=== PATIENT | male | born 1995 | race Caucasian/White ===

== ENCOUNTER 2023-10-23 08:57 | Inpatient (IN) | payer SELFPAY ==
[2023-10-23 09:01] VITALS: BP 174/105; PULSE 90; RESP 17; TEMP 36.7; O2SAT 94; BMI 26.6
--- NOTE | 2023-10-23 09:02 | W.ED.ALCOHOL ---
Documented by User: XAVIER Escalera 10/23/23 10:31 HPI - Alcohol General: Chief Complaint: Alcohol Stated Complaint: detox, alcohol Time Seen by Provider: 10/23/23 09:01 Source: patient Mode of arrival: ambulatory Limitations: no limitations History of Present Illness: Patient is a 27-year-old male who presents requesting alcohol detox. Patient states he has been binge drinking over the past several days. He states he has been drinking heavily daily over the past 8 years. Patient feels like his mental health is not in a good place right now and is requesting help for this as well. He states he does have depression admittedly worsens with his drinking. Patient feels like he is worthless and hopeless. He is not having any suicidal ideations. He has never self harmed before. Denies hallucinations. MD complaint: alcohol withdrawal, alcohol dependence and desires rehab Last drink: Hours (ago) Chronic alcohol use: Yes Previous visits for alcohol intoxication: No Recent trauma: No Associated symptoms: Reports depression and nausea; Deny abdominal pain, suicidal ideation, syncope or vomiting Treatments prior to arrival: none Review of Systems Const: Denies: fever(s), chills, body aches, fatigue or malaise Eyes: Denies: change in vision, blurry vision, photophobia, floaters or seeing flashes Card: Denies: chest pain, palpitations, irregular heart rhythm, edema, lightheadedness, syncope or pre-syncope Resp: Denies: dyspnea GI: Reports: nausea; Denies: abdominal pain, vomiting or diarrhea : Denies: flank pain, difficulty urinating, dysuria, urinary frequency, urinary urgency or urinary hesitancy Musc: Denies: neck pain, back pain, extremity pain, extremity swelling, joint pain or joint swelling Skin/Breast: Denies: rash Neuro: Denies: headache(s), numbness in extremities, weakness in extremities, sensory changes or dizziness Psych: Reports: anxiety, depression and hopelessness; Denies: visual hallucinations, auditory hallucinations, suicidal ideation or homicidal ideation Physical Exam Const: COMMON NORMALS: no acute distress, patient oriented x3, no limitations, alert and well nourished GENERAL APPEARANCE: cooperative, anxious and appears older than stated age ORIENTATION/CONSCIOUSNESS: Yes awake, Yes oriented to person, Yes oriented to place and Yes oriented to time OTHER: hypertensive HENMT: COMMON NORMALS: normocephalic and atraumatic HEAD & SCALP: normal to inspection, normocephalic and atraumatic Eye: COMMON NORMALS: no scleral icterus Resp: COMMON NORMALS: normal respiratory effort and clear to auscultation bilaterally AUSCULTATION: clear to auscultation bilaterally Cardio: COMMON NORMALS: regular rate and regular rhythm RATE: regular rate RHYTHM: regular rhythm GI: COMMON NORMALS: Normal to inspection, nondistended, normoactive bowel sounds present, Soft to palpation, non-tender and no masses PALPATION: Yes Soft to palpation Back/Pelvis: COMMON NORMALS: thoracic and lumbar spine normal to inspection Extremity: GENERAL: Yes normal exam except as noted Neuro: WONG COMA SCALE: document GCS findings Wong coma scale eye opening: Spontaneous Wong coma scale verbal response: Orientated Wong coma scale motor response: Obey commands Wong coma scale total score: 15 COMMON NORMALS: patient oriented x3, CN's II-XII intact bilaterally, moves all extremities, no focal motor deficits, no sensory deficits noted and gait normal SENSORIUM/ORIENTATION: Yes alert, Yes oriented to person, Yes oriented to place and Yes oriented to time Skin: COMMON NORMALS: no rashes or lesions noted GENERAL SKIN EXAM: no rashes or lesions noted Course Consultations: Consultation #1: Dr. Wells-will admit to NPU Vital Signs: Vital signs: Vital Signs Temperature 98.2 F 10/23/23 12:15 Pulse Rate 106 H 10/23/23 12:15 Respiratory Rate 16 10/23/23 12:15 Blood Pressure 136/84 10/23/23 12:15 Pulse Oximetry 95 10/23/23 12:15 Oxygen Delivery Me thod Room Air 10/23/23 12:18 MDM - Alcohol Medical Decision Making Patient is a 27-year-old male who be admitted to NPU to Dr. Wells for further evaluation and treatment of his worsening depression and alcohol abuse. Medical Records I reviewed the patient's medical records. Lab Data I reviewed the patient's lab results. 10/23/23 09:23 10/23/23 09:23 Laboratory Results WBC 9.07 10^3/uL (3.29-11.43) 10/23/23 09:23 RBC 5.54 10^6/uL (3.85-5.65) 10/23/23 09:23 Hgb 16.50 g/dL (11.27-16.99) 10/23/23 09: Hct 48.2 % (37-53) 10/23/23 09: MCV 87.0 fl (82-101) 10/23/23 09: MCH 29.8 pg (27-33) 10/23/23 09: MCHC 34.2 g/dL (30-55) 10/23/23 09: RDW 12.3 % (12.1-15.1) 10/23/23 09: Plt Count 205 10^3/cmm (157-399) 10/23/23 09: MPV 10.1 fL (7.4-10.4) 10/23/23 09: Neut % (Auto) 72.6 % 10/23/23 09: Lymph % (Auto) 17.6 % 10/23/23 09: Sibley % (Auto) 7.6 % 10/23/23 09: Eos % (Auto) 1.2 % 10/23/23 09: Baso % (Auto) 0.3 % 10/23/23 09: Neut # (Auto) 6.58 10^3/uL (1.8-7.7) 10/23/23 09: Lymph # (Auto) 1.6 10^3/uL (0.8-4.8) 10/23/23 09: Sibley # (Auto) 0.7 10^3/uL (0.2-0.9) 10/23/23 09: Eos # (Auto) 0.1 10^3/uL (0.0-0.8) 10/23/23 09: Baso # (Auto) 0.0 10^3/uL (0.0-0.1) 10/23/23: Nucleated RBC % (auto) 0 % 10/23/23: Nucleated RBCs # 0.0 /100WBC 10/23/23 09: Sodium 136 mmol/L (136-145) 10/23/23 09:23 Potassium 3.9 mmol/L (3.5-5.1) 10/23/23 09: Chloride 92 mmol/L (98-107) L 10/23/23 09:23 Carbon Dioxide 24 mmol/L (22-29) 10/23/23 09:23 Anion Gap 23.9 (5-19) H 10/23/23 09:23 BUN 10 mg/dL (6-20) 10/23/23 09:23 Creatinine 1.0 mg/dL (0.7-1.2) 10/23/23 09:23 GFR Calculation 88.3 mL/min (90-130) L 10/23/23 09:23 Glucose 104 mg/dL (65-115) 10/23/23 09:23 Calculated Osmolality 281 mOsm/kg (285-295) L 10/23/23 09:23 Calcium 9.4 mg/dL (8.5-10.5) 10/23/23 09:23 Total Bilirubin 0.9 mg/dL (0.15-1.2) 10/23/23 09:23 AST 114 U/L (0-40) H 10/23/23 09:23 ALT 170 U/L (0-41) H 10/23/23 09:23 Alkaline Phosphatase 73 U/L (40-130) 10/23/23 09:23 Total Protein 8.1 g/dL (6.6-8.7) 10/23/23 09:23 Albumin 4.9 g/dL (3.5-5.2) 10/23/23 09:23 Globulin 3.2 g/dL (1.3-4.6) 10/23/23 09:23 Salicylates < 0.3 mg/dL (3-10) L 10/23/23 09:23 Urine Opiates Screen Negative ng/mL (Negative) 10/23/23 09:07 Acetaminophen < 5.0 ug/mL (10-30) L 10/23/23 09:23 Ur Barbiturates Screen Negative ng/mL (Negative) 10/23/23 09:07 Ur Phencyclidine Scrn Negative ng/mL (Negative) 10/23/23 09:07 Ur Amphetamines Screen Negative ng/mL (Negative) 10/23/23 09:07 U Benzodiazepines Scrn Negative ng/mL (Negative) 10/23/23 09:07 Urine Cocaine Screen Negative ng/mL (Negative) 10/23/23 09:07 U Marijuana (THC) Screen Positive ng/mL (Negative) H 10/23/23 09:07 Ethyl Alcohol 79 mg/dL (0-10) H 10/23/23 09:23 No radiology studies performed this visit Discharge Plan Discharge Patient Disposition: Admitted As Inpatient Admit Provider: Matt Wells Clinical Impression: Chronic alcohol abuse, Depression Condition: Stable Coding Level of Care Code ED [employer]ist for [employer] Fwd Documented by User: Zoltan Red DO 10/23/23 15:15 HPI - Alcohol General: Chief Complaint: Alcohol Stated Complaint: detox, alcohol Time Seen by Provider: 10/23/23 09:01 Physical Exam Neuro: WONG COMA SCALE: document GCS findings [place] coma scale total score: 15 Course Vital Signs: Vital signs: Vital Signs Temperature 98.2 F 10/23/23 12:15 Pulse Rate 106 H 10/23/23 12:15 Respiratory Rate 16 10/23/23 12:15 Blood Pressure 136/84 10/23/23 12:15 Pulse Oximetry 95 10/23/23 12:15 Oxygen Delivery Me thod Room Air 10/23/23 12:18 MDM - Alcohol Medical Decision Making Patient is a 27-year-old male who be admitted to NPU to Dr. Wells for further evaluation and treatment of his worsening depression and alcohol abuse. Chart reviewed and patient discussed with midlevel. Agree with assessment and plan. Lab Data 10/23/23 09:23 10/23/23 09:23 Laboratory Results WBC 9.07 10^3/uL (3.29-11.43) 10/23/23 09:23 RBC 5.54 10^6/uL (3.85-5.65) 10/23/23 09:23 Hgb 16.50 g/dL (11.27-16.99) 10/23/23 09:23 Hct 48.2 % (37-53) 10/23/23 09:23 MCV 87.0 fl (82-101) 10/23/23 09:23 MCH 29.8 pg (27-33) 10/23/23 09:23 MCHC 34.2 g/dL (30-55) 10/23/23 09: RDW 12.3 % (12.1-15.1) 10/23/23 09: Plt Count 205 10^3/cmm (157-399) 10/23/23 09:23 MPV 10.1 fL (7.4-10.4) 10/23/23 09: Neut % (Auto) 72.6 % 10/23/23 09: Lymph % (Auto) 17.6 % 10/23/23 09:23 Sibley % (Auto) 7.6 % 10/23/23 09:23 Eos % (Auto) 1.2 % 10/23/23 09: Baso % (Auto) 0.3 % 10/23/23 09: Neut # (Auto) 6.58 10^3/uL (1.8-7.7) 10/23/23 09: Lymph # (Auto) 1.6 10^3/uL (0.8-4.8) 10/23/23 09: Sibley # (Auto) 0.7 10^3/uL (0.2-0.9) 10/23/23 09:23 Eos # (Auto) 0.1 10^3/uL (0.0-0.8) 10/23/23 09: Baso # (Auto) 0.0 10^3/uL (0.0-0.1) 10/23/23 09: Nucleated RBC % (auto) 0 % 10/23/23 09: Nucleated RBCs # 0.0 /100WBC 10/23/23 09: Sodium 136 mmol/L (136-145) 10/23/23 09:23 Potassium 3.9 mmol/L (3.5-5.1) 10/23/23 09:23 Chloride 92 mmol/L (98-107) L 10/23/23 09:23 Carbon Dioxide 24 mmol/L (22-29) 10/23/23 09:23 Anion Gap 23.9 (5-19) H 10/23/23 09:23 BUN 10 mg/dL (6-20) 10/23/23 09:23 Creatinine 1.0 mg/dL (0.7-1.2) 10/23/23 09:23 GFR Calculation 88.3 mL/min (90-130) L 10/23/23 09:23 Glucose 104 mg/dL (65-115) 10/23/23 09:23 Calculated Osmolality 281 mOsm/kg (285-295) L 10/23/23 09:23 Calcium 9.4 mg/dL (8.5-10.5) 10/23/23 09:23 Total Bilirubin 0.9 mg/dL (0.15-1.2) 10/23/23 09:23 AST 114 U/L (0-40) H 10/23/23 09:23 ALT 170 U/L (0-41) H 10/23/23 09:23 Alkaline Phosphatase 73 U/L (40-130) 10/23/23 09:23 Total Protein 8.1 g/dL (6.6-8.7) 10/23/23 09:23 Albumin 4.9 g/dL (3.5-5.2) 10/23/23 09:23 Globulin 3.2 g/dL (1.3-4.6) 10/23/23 09:23 Salicylates < 0.3 mg/dL (3-10) L 10/23/23 09:23 Urine Opiates Screen Negative ng/mL (Negative) 10/23/23 09:07 Acetaminophen < 5.0 ug/mL (10-30) L 10/23/23 09:23 Ur Barbiturates Screen Negative ng/mL (Negative) 10/23/23 09:07 Ur Phencyclidine Scrn Negative ng/mL (Negative) 10/23/23 09:07 Ur Amphetamines Screen Negative ng/mL (Negative) 10/23/23 09:07 U Benzodiazepines Scrn Negative ng/mL (Negative) 10/23/23 09:07 Urine Cocaine Screen Negative ng/mL (Negative) 10/23/23 09:07 U Marijuana (THC) Screen Positive ng/mL (Negative) H 10/23/23 09:07 Ethyl Alcohol 79 mg/dL (0-10) H 10/23/23 09:23 Discharge Plan Discharge Patient Disposition: Admitted As Inpatient Admit Provider: Matt Wells Clinical Impression: Chronic alcohol abuse, Depression Condition: Stable Coding Level of Care Code 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
[2023-10-23 09:12] VITALS: BP 146/87; PULSE 70; RESP 16; O2SAT 96
--- NOTE | 2023-10-23 09:18 | PC.PHAR ---
PT STATES HE TAKES NO RX OR OTC MEDICATIONS
[2023-10-23 09:28] LABS: Basophils % 0.3 %; Eosinophils # 0.1 10^3/uL (0.0-0.8); Eosinophils % 1.2 %; Hematocrit 48.2 % (37-53); Lymphocytes # 1.6 10^3/uL (0.8-4.8); Lymphocytes % 17.6 %; Mean Corpuscular HGB Conc 34.2 g/dL (30-55); Mean Corpuscular Hemoglobin 29.8 pg (27-33); Mean Platelet Volume 10.1 fL (7.4-10.4); Monocytes # 0.7 10^3/uL (0.2-0.9); Monocytes % 7.6 %; Neutrophils # 6.58 10^3/uL (1.8-7.7); Neutrophils % 72.6 %; Nucleated Red Blood Cells % 0 %; Platelet Count 205 10^3/cmm (157-399); Red Blood Count 5.54 10^6/uL (3.85-5.65); Red Cell Distribution Width 12.3 % (12.1-15.1); White Blood Count 9.07 10^3/uL (3.29-11.43)
[2023-10-23] MEDS: multivitamin therapeutic Tablet 1 TAB PO (09:42)
[2023-10-23] MEDS: LORazepam 2 mg/mL INJ 10 mL MDV 1 MG IV (09:46)
[2023-10-23] MEDS: sodium chloride 0.9% 1,000 ML 999 ML IV (09:47)
[2023-10-23 09:50] LABS: Alanine Aminotransferase 170 U/L (0-41); Albumin Level 4.9 g/dL (3.5-5.2); Alcohol Level 79 mg/dL (0-10); Alkaline Phosphatase 73 U/L (40-130); Anion Gap 23.9 (5-19); Aspartate Amino Transferase 114 U/L (0-40); Blood Urea Nitrogen 10 mg/dL (6-20); Calcium 9.4 mg/dL (8.5-10.5); Carbon Dioxide 24 mmol/L (22-29); Chloride 92 mmol/L (98-107); Creatinine Clr Calc Pharmacy 112.2204; Globulin 3.2 g/dL (1.3-4.6); Glomerular Filtration Rate 88.3 mL/min (90-130); Glucose 104 mg/dL (65-115); Osmolality Calculated 281 mOsm/kg (285-295); Potassium 3.9 mmol/L (3.5-5.1); Sodium 136 mmol/L (136-145); Total Bilirubin 0.9 mg/dL (0.15-1.2); Total Protein 8.1 g/dL (6.6-8.7)
[2023-10-23 09:51] LABS: Acetaminophen < 5.0 ug/mL (10-30); Salicylate < 0.3 mg/dL (3-10)
[2023-10-23 10:17] LABS: Amphetamines Screen Urine Negative (Negative); Barbiturates Screen Urine Negative (Negative); Benzodiazepines Screen Urine Negative (Negative); Cocaine Screen Urine Negative (Negative); Opiate Screen Urine Negative (Negative); PCP Screen Urine Negative (Negative); THC Screen Urine Positive (Negative)
[2023-10-23 11:12] VITALS: BP 138/81; PULSE 81; O2SAT 96
[2023-10-23 12:15] VITALS: BP 136/84; PULSE 106; RESP 16; TEMP 36.8; O2SAT 95
[2023-10-23] MEDS: LORazepam 2 mg Tablet PO ×2 (12:41→20:15)
--- NOTE | 2023-10-23 12:45 | PC.NURSE ---
PRN MED PT GIVEN 2MG ATIVAN FOR DETOX, SCORING 11 ON CIWA SCALE, WILL CONTINUE TO MONITOR.
[2023-10-23 14:00] VITALS: BP 129/67; PULSE 87; RESP 16; TEMP 36.6; O2SAT 98
[2023-10-23 20:30] VITALS: BP 154/80; PULSE 89; RESP 17; TEMP 37.2; O2SAT 98
--- NOTE | 2023-10-23 22:21 | PC.NURSE ---
Pt scored 14 on the CIWA scale and received 2mg PO Ativan.
[2023-10-24 06:00] VITALS: BP 131/80; PULSE 88; RESP 17; TEMP 36.9; O2SAT 95
[2023-10-24] MEDS: ondansetron 4 MG Tablet PO (08:34)
[2023-10-24] MEDS: LORazepam 2 mg Tablet PO ×4 (08:34→20:10)
[2023-10-24] MEDS: multivitamin therapeutic Tablet 1 TAB PO (08:34)
[2023-10-24] MEDS: folic acid 1 mg Tablet PO (08:34)
[2023-10-24] MEDS: thiamine 100 mg Tablet PO (08:34)
[2023-10-24] MEDS: acetaminophen 325 mg Tablet 650 MG PO ×3 (08:35→20:10)
--- NOTE | 2023-10-24 09:37 | PC.NURSE ---
PT WAS GIVEN PRN TYLENOL 650MG FOR A HEADACHE, PRN ONDANSETRON 5MG FOR NAUSEA, AND PRN ATIVAN 2 MG PER [facility] PROTOCOL. PT WAS REASSESSED AND PT WAS RESTING PEACEFULLY IN BED WITH EYES CLOSED RESPIRATIONS ARE EVEN AND NON-LABORED. MEDICATIONS APPEARS TO HAVE RELIEVED SYMPTOMS.
--- NOTE | 2023-10-24 11:28 | W.PM.NPUH&PS ---
Providers/Chief Complaint Admitting Physician: Matt Wells MD Chief Complaint: detox, alcohol HPI NPU History of Present Illness Holger Jones is a 27 year old male who presented to the emergency department with the following report: Chief Complaint: Alcohol Stated Complaint: detox, alcohol Time Seen by Provider: 10/23/23 09:01 Source: patient Mode of arrival: ambulatory Limitations: no limitations History of Present Illness: Patient is a 27-year-old male who presents requesting alcohol detox. Patient states he has been binge drinking over the past several days. He states he has been drinking heavily daily over the past 8 years. Patient feels like his mental health is not in a good place right now and is requesting help for this as well. He states he does have depression admittedly worsens with his drinking. Patient feels like he is worthless and hopeless. He is not having any suicidal ideations. He has never self harmed before. Denies hallucinations. MD complaint: alcohol withdrawal, alcohol dependence and desires rehab Last drink: Hours (ago) Chronic alcohol use: Yes Previous visits for alcohol intoxication: No Recent trauma: No Associated symptoms: Reports depression and nausea; Deny abdominal pain, suicidal ideation, syncope or vomiting Treatments prior to arrival: none. He was transferred to the neuropsychiatric unit for definitive treatment of those issues. He presents today new to the system and new to this narrative writer with the following report: CHIEF COMPLAINT Patient sought help for alcohol detoxification, depression, and anxiety. HISTORY OF THE PRESENT COMPLAINT The patient, born on 1995, presented to the hospital for alcohol detoxification and sleep issues. He reported a history of chronic depression and anxiety, which he has been experiencing for his entire life. His alcohol use has recently escalated and he has been trying to control it. He stopped drinking a couple of days prior to the consultation. The patient has a history of psychiatric hospitalization, with one instance in [place]. He also had outpatient services in [place] for depression, but he discontinued the therapy as he found it unhelpful. In the past, he was prescribed sertraline (Zoloft) and Lexapro for his mental health issues. The patient started consuming alcohol at the age of 12 and it has been a daily problematic behavior since he was 19. BAL was 79. Prior to his recent cessation, he was consuming a minimum of 20 beers a day, sometimes with whiskey. He also reported using cannabis to calm his nerves and aid sleep. He denied using cocaine, methamphetamine, or any other drugs. He has never been to rehab but attended drug counseling classes when he was younger. He is currently dealing with a DUI charge from January 2023. The patient reported a history of depression, characterized by low mood, feelings of helplessness, hopelessness, and worthlessness. He tends to oversleep when depressed and his appetite varies. He admitted to having suicidal thoughts in the past but never acted on them. He denied any self-injurious behavior apart from alcohol abuse. His anxiety manifests as constant fear and worry, with occasional paranoia. He denied experiencing hallucinations, nightmares, or flashbacks about traumatic events. The patient has been transient for almost 9 or 10 years, moving between homes. He is currently homeless and trying to find stable housing. He has a job in construction. He has been to group home a few times, mainly for alcohol-related offenses. The longest time he spent in group home was for 180 days when he was 16 due to a cannabis-related charge. The patient described his current mood as anxious and uncertain about the future. He denied having any current suicidal thoughts or feelings of paranoia. He also denied experiencing hallucinations. He expressed interest in trying another antidepressant or anti-anxiety medication. He is also interested in finding a stable place to live and getting back on his feet. We discussed the risks, benefits and alternatives of a trial of Prozac and BuSpar and he understood and agreed to proceed as is documented in this note. MENTAL HEALTH HISTORY Patient has a history of depression and anxiety. He has been on sertraline (Zoloft) in the past. He has also been in a psychiatric hospital in [place] once. He has had outpatient services in [place] for depression, but stopped going as it was not beneficial. SOCIAL HISTORY Patient has a history of alcohol abuse, starting at the age of 12, with daily problematic behavior. He stopped drinking a couple of days ago. He used to consume 20 beers at a minimum daily, sometimes with a little whiskey. He also used cannabis to calm down. He has no history of tobacco use. He has a DUI charge that he is currently working through. He has a history of public intoxication. He has been transient for almost 9 or 10 years. He has been to group home a few times, mostly for drinking-related issues. He has a job in construction. Busap NPU Home Medications Medication Instructions Recorded Confirmed Last Taken Type No Known Home Medications 10/23/23 10/23/23 Unknown History Allergies Allergy/AdvReac Type Severity Reaction Status Date / Time No Known Allergies Allergy Verified 10/23/23 09:17 Mental Status Exam MSE Comments: This is a well-nourished well-developed white male in hospital scrubs with poor grooming and limited eye contact. No abnormal movements except for psychomotor retardation. Cooperative with exam in mild distress. Speech was slightly decreased rate and volume. Mood described as depressed and anxious, affect subdued. Thought process organized. Thought content: He reports constant depression and anxiety. He has had suicidal thoughts in the past but never acted on them. He has no history of self-injurious behavior. He reports feeling constantly afraid and worried. He sometimes feels paranoid. Patient denied suicidal or homicidal ideation, there were no delusions reported or noted, he denied any auditory or visual hallucinations. Attention and concentration appear intact and memory appears reliable but none were formally tested. He is alert and oriented x 3. Insight and judgment are limited and impulse control is impaired. Vitals/I&O/Wt Last Vital Signs Temp 98.4 F 10/24/23 06:00 Pulse 88 10/24/23 06:00 Resp 17 10/24/23 06:00 BP 131/80 10/24/23 06:00 Pulse Ox 95 10/24/23 06:00 O2 Del Method Room Air 10/24/23 06:00 Weight last 48 hrs Weight 79.379 kg Data NPU 10/23/23 09:23 10/23/23 09:23 A&P Assessment and plan (1) Alcohol use disorder, severe, dependence: (2) Anxiety disorder, unspecified: (3) Persistent depressive disorder, moderate: (4) Alcohol withdrawal: Plan This is a 27-year-old white male with a previous history of mental health and addiction issues who presents with chronic depression and anxiety, along with a history of alcohol abuse. He is currently seeking help for these issues. He has a history of unsuccessful outpatient treatment and has been on medication in the past. He has a history of legal issues related to his alcohol use. He is currently transient and working in construction. 1. Start Prozac 20 mg p.o. daily and BuSpar 10 mg p.o. twice daily. 2. Continue every 15 minute checks for safety. 3. Encourage individual, group and milieu therapy. 4. Encourage sober living treatment after discharge at the highest level of care to which she is willing to commit. 5. Will work with social work team on Thursday for possible assistance with residential challenges. 6. Continue CIWA protocol. Involuntary Hold Information 96 Hour Hold: 96 Hour Involuntary Admission: No Attestations NPU Medical Necessity Statement*: Inpatient hospitalization is medically necessary and the clinically appropriate intervention at this time. We will monitor medications and make changes as indicated. He will be in the hospital over 2 midnights. Likely length of stay 4-6 days. Coding Level of Care Code Acute Code for [facility] Fwd Diagnoses Alcohol use disorder, severe, dependence F10.20 Anxiety disorder, unspecified F41.9 Persistent depressive disorder, moderate F34.1 Alcohol withdrawal F10.939
[2023-10-24] MEDS: BuSPIRONE 10 mg Tablet PO ×2 (13:29→20:10)
[2023-10-24] MEDS: fluoxetine 20 mg Capsule PO (13:29)
[2023-10-24 14:00] VITALS: BP 122/75; PULSE 74; RESP 16; TEMP 36.6; O2SAT 97
--- NOTE | 2023-10-24 14:05 | PC.NURSE ---
PT RECEIVED PRN TYLENOL 650MG AND PRN ATIVAN PER [facility] PROTOCOL FOR A SCORE OF 10. AFTER REASSESSMENT PT IS LAYING IN BED, PT ENDORSES A RELIEF IN ANXIETY AND NO LONGER HAVING A HEADACHE. MEDICATIONS HAVE BEEN DEEMED EFFECTIVE.
[2023-10-24] MEDS: ibuprofen 600 mg Tablet PO (17:01)
--- NOTE | 2023-10-24 17:50 | PC.NURSE ---
PT RECEIVED PT ATIVAN PER [facility] PROTOCOL FOR A SCORE OF 10 AND IBUPROFEN 600MG PRN FOR A HEADACHE. AFTER REASSESSMENT PT ENDORSES RELIEF OF ANXIETY AND WITHDRAWAL SYMPTOMS AND SOME PAIN RELIEF FOR HIS HEADACHE.
[2023-10-24 20:31] VITALS: BP 149/82; PULSE 89; RESP 17; TEMP 37.4; O2SAT 97
[2023-10-25 06:00] VITALS: BP 123/80; PULSE 102; RESP 16; TEMP 36.9; O2SAT 98
--- NOTE | 2023-10-25 07:31 | P.NPUPN_ITS ---
Subjective NPU 2 Subjective: Today patient presented reporting that things are fine. He reports his medication seems to be helping. We discussed Dr. Monsivais would be here tomorrow. He discussed wanting to discharge sooner rather than later. He denied side effects to medication. Mental Status Exam 2 MSE Comments: This is a well-nourished well-developed white male in hospital scrubs with poor grooming and limited eye contact. No abnormal movements except for psychomotor retardation. Cooperative with exam in mild distress. Speech was slightly decreased rate and volume. Mood described as depressed and anxious, affect subdued. Thought process organized. Thought content: He reports constant depression and anxiety. He has had suicidal thoughts in the past but never acted on them. He has no history of self-injurious behavior. He reports feeling constantly afraid and worried. He sometimes feels paranoid. Patient denied suicidal or homicidal ideation, there were no delusions reported or noted, he denied any auditory or visual hallucinations. Attention and concentration appear intact and memory appears reliable but none were formally tested. He is alert and oriented x 3. Insight and judgment are limited and impulse control is impaired. Vitals/I&O/Wt Last Vital Signs Temp 98.4 F 10/25/23 06:00 Pulse 102 H 10/25/23 06:00 Resp 16 10/25/23 06:00 BP 123/80 10/25/23 06:00 Pulse Ox 98 10/25/23 06:00 O2 Del Method Room Air 10/24/23 20:31 Weight last 48 hrs Weight 84.55 kg Weight 79.379 kg Data NPU 10/23/23 09:23 10/23/23 09:23 A&P Assessment and plan (1) Anxiety disorder, unspecified: (2) Persistent depressive disorder, moderate: (3) Alcohol withdrawal: Plan This is a 27-year-old white male with a previous history of mental health and addiction issues who presents with chronic depression and anxiety, along with a history of alcohol abuse. He is currently seeking help for these issues. He has a history of unsuccessful outpatient treatment and has been on medication in the past. He has a history of legal issues related to his alcohol use. He is currently transient and working in construction. 1. Started Prozac 20 mg p.o. daily and BuSpar 10 mg p.o. twice daily. 2. Continue every 15 minute checks for safety. 3. Encourage individual, group and milieu therapy. 4. Encourage sober living treatment after discharge at the highest level of care to which she is willing to commit. 5. Will work with social work team on Thursday for possible assistance with residential challenges. 6. Continue [facility] protocol. Involuntary Hold Information 2 96 Hour Hold: 96 Hour Involuntary Admission: No Attestations NPU 2 Medical Necessity Statement*: Inpatient hospitalization is medically necessary and the clinically appropriate intervention at this time. We will monitor medications and make changes as indicated. Likely length of stay 1-3 days. Coding Level of Care Code Acute Code for [facility] Fwd Diagnoses Anxiety disorder, unspecified F41.9 Persistent depressive disorder, moderate F34.1 Alcohol withdrawal F10.939
[2023-10-25] MEDS: multivitamin therapeutic Tablet 1 TAB PO (08:21)
[2023-10-25] MEDS: fluoxetine 20 mg Capsule PO (08:21)
[2023-10-25] MEDS: BuSPIRONE 10 mg Tablet PO ×2 (08:21→20:12)
[2023-10-25] MEDS: thiamine 100 mg Tablet PO (08:21)
[2023-10-25] MEDS: folic acid 1 mg Tablet PO (08:21)
[2023-10-25] MEDS: LORazepam 2 mg Tablet PO ×2 (08:21→18:01)
--- NOTE | 2023-10-25 11:08 | PC.NURSE ---
PT RECEIVED PRN 2MG ATIVAN PER [facility] PROTOCOL. PT SCORED A 10. AFTER REASSESSMENT PT ENDORSED IMPROVEMENT IN SYMPTOMS AND THE ABILITY TO REST AND A SIGNIFICANT DECREASE IN ANXIETY.
--- NOTE | 2023-10-25 11:48 | PC.NURSE ---
PT CAME TO NURSES STATION AND ASKED ABOUT DISCHARGE. THIS NURSE EXPLAINED THAT THE PHYSICIAN HAS TO PLACE A DISCHARGE ORDER FOR A PERSON TO BE DISCHARGE. THIS NURSE EDUCATED PT THAT DISCHARGE WAS DEPENDENT ON HOW THE PT HAS BEEN PROGRESSING WITH TREATMENT. PT STATED WELL I NEED TO GET BACK TO WORK I AM NOT MAKING ANY MONEY JUST LAYING IN BED HERE. I HAVE STARTED MEDICATIONS AND NOW I WOULD LIKE TO LEAVE. I CAME HERE VOLUNTARILY. THIS NURSE EXPLAINED THAT THE ONLY OPTION CURRENTLY FOR HIM TO LEAVE WOULD BE FOR HIM TO LEAVE AMA. THIS NURSE EXPLAINED THAT THIS WOULD MEAN THAT HE IS LEAVING AGAINST MEDICAL ADVICE AND THAT WE WOULD NOT BE ABLE TO PROVIDE HIM WITH FOLLOW UP APPOINTMENT OR THE NEW MEDICATIONS THAT HE HAS STARTED HERE. PT VERBALIZED UNDERSTANDING THEN BECAME UPSET WITH BEING HERE WHILE STAFF WAS DOING NOTHING TO HELP HIM . THIS NURSE SPOKE WITH AND EXPLAINED THE TREATMENT THAT HE WAS CURRENTLY ON, AND SPOKE WITH HIM ABOUT HOW THE DOCTOR STARTED HIM ON NEW MEDICATIONS YESTERDAY ON 10/24/23. PT STATED YEAH EXACTLY I HAVE MEDICINE AND I DIDN'T HAVE ANY BAD REACTIONS SO WHY AM I STILL HERE, I HAVE BEEN HERE FOR 4 DAY AND I HAVE ONLY BEEN LAYING IN BED. THIS NURSE REORIENTED PT STATING THAT HE GOT ADMITTED ON 10/23/23 WHICH WOULD MEAN THAT HE HAS ONLY BEEN HERE 2 NIGHTS. PT RESPONDED TO THIS NURSE STATING YEAH 4 NIGHTS. THIS NURSE AGAIN REATTEMPTED REORIENTATION WITH PT STATING SIR YOU GOT HERE ON THE IT IS NOW THE THIS WOULD MEAN THAT YOU HAVE ONLY BEEN HERE FOR 2 NIGHTS. PT STATED WELL I CAN'T TELL THE DIFFERENCE BETWEEN DAYS HERE. I FEEL COOPED UP IN THIS [facility]. THIS NURSE ASKED IF THERE WAS ANYTHING STAFF COULD DO TO ALLEVIATE THIS FEELING AND OFFERED A NUMBER OF DISTRACTIONS SUCH READING, PUZZLES, CROSSWORDS, CARDS, AND OTHER GAMES. PT REPLIED WITH ARE YOU GOING TO GIVE ME MY PHONE? THIS NURSE RESPONDED WITH NO, SIR IT IS COMPANY POLICY THAT OUR UNITS PTS MAY NOT HAVE THEIR CELLPHONES HOWEVER, YOU ARE MORE THAN WELCOME TO UTILIZE OUR PHONE TO CONTACT YOUR FAMILY AND FRIENDS. PT BECAME FRUSTRATED AND ASKED WHEN HE WOULD FIND OUT WHEN HE WAS GOING TO LEAVE THIS NURSE TOLD HIM SHE WOULD LOOK INTO THIS INFORMATION BUT THAT I DO NOT CURRENTLY HAVE AN EXACT TIME FRAME AT THIS MOMENT. PT THEN WALKED TO HIS ROOM. PT CURRENT NEEDS ARE MET AT THIS TIME.
[2023-10-25] MEDS: acetaminophen 325 mg Tablet 650 MG PO (12:48)
[2023-10-25] MEDS: hyDROXYzine 25 mg Capsule 50 MG PO ×2 (12:48→20:12)
[2023-10-25 13:18] VITALS: BP 134/86; PULSE 86; RESP 16; TEMP 36.6; O2SAT 96
[2023-10-25 19:37] VITALS: BP 131/75; PULSE 75; RESP 16; TEMP 37.4; O2SAT 97
[2023-10-25] MEDS: trazodone 50 mg Tablet PO (20:13)
[2023-10-26 06:00] VITALS: BP 110/73; PULSE 68; RESP 16; TEMP 36.9; O2SAT 95
[2023-10-26] MEDS: BuSPIRONE 10 mg Tablet PO (08:29)
[2023-10-26] MEDS: fluoxetine 20 mg Capsule PO (08:29)
[2023-10-26] MEDS: multivitamin therapeutic Tablet 1 TAB PO (08:29)
[2023-10-26] MEDS: folic acid 1 mg Tablet PO (08:29)
[2023-10-26] MEDS: thiamine 100 mg Tablet PO (08:29)
--- NOTE | 2023-10-26 13:59 | W.PM.NPUDCS ---
Diagnoses at Discharge Discharge Diagnosis (1) Anxiety disorder, unspecified: Status: Acute (2) Persistent depressive disorder, moderate: Status: Acute (3) Alcohol withdrawal: Status: Acute Reason for Visit Reason for Visit: detox, alcohol Brief History: History of Present Illness Holger Jones is a 27 year old male who presented to the emergency department with the following report: Chief Complaint: Alcohol Stated Complaint: detox, alcohol Time Seen by Provider: 10/23/23 09:01 Source: patient Mode of arrival: ambulatory Limitations: no limitations History of Present Illness: Patient is a 27-year-old male who presents requesting alcohol detox. Patient states he has been binge drinking over the past several days. He states he has been drinking heavily daily over the past 8 years. Patient feels like his mental health is not in a good place right now and is requesting help for this as well. He states he does have depression admittedly worsens with his drinking. Patient feels like he is worthless and hopeless. He is not having any suicidal ideations. He has never self harmed before. Denies hallucinations. MD complaint: alcohol withdrawal, alcohol dependence and desires rehab Last drink: Hours (ago) Chronic alcohol use: Yes Previous visits for alcohol intoxication: No Recent trauma: No Associated symptoms: Reports depression and nausea; Deny abdominal pain, suicidal ideation, syncope or vomiting Treatments prior to arrival: none. He was transferred to the neuropsychiatric unit for definitive treatment of those issues. He presents today new to the system and new to this commercial insurance underwriter with the following report: CHIEF COMPLAINT Patient sought help for alcohol detoxification, depression, and anxiety. HISTORY OF THE PRESENT COMPLAINT The patient, born on 1995, presented to the hospital for alcohol detoxification and sleep issues. He reported a history of chronic depression and anxiety, which he has been experiencing for his entire life. His alcohol use has recently escalated and he has been trying to control it. He stopped drinking a couple of days prior to the consultation. The patient has a history of psychiatric hospitalization, with one instance in [place]. He also had outpatient services in [place] for depression, but he discontinued the therapy as he found it unhelpful. In the past, he was prescribed sertraline (Zoloft) and Lexapro for his mental health issues. The patient started consuming alcohol at the age of 12 and it has been a daily problematic behavior since he was 19. BAL was 79. Prior to his recent cessation, he was consuming a minimum of 20 beers a day, sometimes with whiskey. He also reported using cannabis to calm his nerves and aid sleep. He denied using cocaine, methamphetamine, or any other drugs. He has never been to rehab but attended drug counseling classes when he was younger. He is currently dealing with a DUI charge from January 2023. The patient reported a history of depression, characterized by low mood, feelings of helplessness, hopelessness, and worthlessness. He tends to oversleep when depressed and his appetite varies. He admitted to having suicidal thoughts in the past but never acted on them. He denied any self-injurious behavior apart from alcohol abuse. His anxiety manifests as constant fear and worry, with occasional paranoia. He denied experiencing hallucinations, nightmares, or flashbacks about traumatic events. The patient has been transient for almost 9 or 10 years, moving between homes. He is currently homeless and trying to find stable housing. He has a job in construction. He has been to snf a few times, mainly for alcohol-related offenses. The longest time he spent in snf was for 180 days when he was 16 due to a cannabis-related charge. The patient described his current mood as anxious and uncertain about the future. He denied having any current suicidal thoughts or feelings of paranoia. He also denied experiencing hallucinations. He expressed interest in trying another antidepressant or anti-anxiety medication. He is also interested in finding a stable place to live and getting back on his feet. We discussed the risks, benefits and alternatives of a trial of Prozac and BuSpar and he understood and agreed to proceed as is documented in this note. MENTAL HEALTH HISTORY Patient has a history of depression and anxiety. He has been on sertraline (Zoloft) in the past. He has also been in a psychiatric hospital in [place] once. He has had outpatient services in [place] for depression, but stopped going as it was not beneficial. SOCIAL HISTORY Patient has a history of alcohol abuse, starting at the age of 12, with daily problematic behavior. He stopped drinking a couple of days ago. He used to consume 20 beers at a minimum daily, sometimes with a little whiskey. He also used cannabis to calm down. He has no history of tobacco use. He has a DUI charge that he is currently working through. He has a history of public intoxication. He has been transient for almost 9 or 10 years. He has been to snf a few times, mostly for drinking-related issues. He has a job in construction. Hospital Course Hospital Course During the hospitalization, the patient had routine laboratory studies which were within normal limits except for a few outliers.? Additionally, there was a general medical evaluation which was also within normal limits and revealed no new acute processes.? At the time of discharge, lethality was denied and psychosis was resolving.? Mood and anxiety were well managed.? The patient endorsed a plan to avoid all drugs of abuse and follow up with the aftercare recommendations of the treatment team.? The patient was evaluated and deemed to be absent credible lethality and had achieved the maximum benefit from an inpatient hospitalization, and so was discharged. ?He had no signs of alcohol withdrawal on discharge. He was able to tolerate 20mg of prozac without side effects. Involuntary Hold Information 96 Hour Hold: 96 Hour Involuntary Admission: No Mental Status Exam MSE Comments: This is a well-nourished well-developed white male in hospital scrubs with fair grooming and good eye contact. No abnormal movements except for mild psychomotor retardation. Cooperative with exam in no acute distress. Speech was normal in rate rhythm and prosody. Mood described as better. affect: slightly restricted. Thought process organized. Thought content: no SI, no HI illicted. He has no history of self-injurious behavior. Patient denied suicidal or homicidal ideation, there were no delusions reported or noted, he denied any auditory or visual hallucinations. Attention and concentration appear intact and memory appears reliable but none were formally tested. He is alert and oriented x 3. Insight was limited. and judgment is adequate. and impulse control is fair. Discharge Data Studies Completed and Pending: Laboratory Results WBC 9.07 10^3/uL (3.2 9-11.43) 10/23/23 09:23 RBC 5.54 10^6/uL (3.8 5-5.65) 10/23/23 09:23 Hgb 16.50 g/dL (11.27 -16.99) 10/23/23 09:23 Hct 48.2 % (37-53) 10/23/23 09:23 MCV 87.0 fl (82-101) 10/23/23 09: MCH 29.8 pg (27-33) 10/23/23 09: MCHC 34.2 g/dL (30-55) 10/23/23 09: RDW 12.3 % (12.1-15.1 ) 10/23/23 09: Plt Count 205 10^3/cmm (157 -399) 10/23/23 09: MPV 10.1 fL (7.4-10.4 ) 10/23/23 09: Neut % (Auto) 72.6 % 10/23/23 09: Lymph % (Auto) 17.6 % 10/23/23 09:23 Glascock % (Auto) 7.6 % 10/23/23 09:23 Eos % (Auto) 1.2 % 10/23/23 09: Baso % (Auto) 0.3 % 10/23/23: Neut # (Auto) 6.58 10^3/uL (1.8 -7.7) 10/23/23 09: Lymph # (Auto) 1.6 10^3/uL (0.8- 4.8) 10/23/23 09: Glascock # (Auto) 0.7 10^3/uL (0.2- 0.9) 10/23/23 09: Eos # (Auto) 0.1 10^3/uL (0.0- 0.8) 10/23/23 09: Baso # (Auto) 0.0 10^3/uL (0.0- 0.1) 10/23/23 09: Nucleated RBC % (a uto) 0 % 10/23/23: Nucleated RBCs # 0.0 /100WBC 10/23/23 09: Sodium 136 mmol/L (136-1 45) 10/23/23 09:23 Potassium 3.9 mmol/L (3.5-5 .1) 10/23/23 09: Chloride 92 mmol/L (98-107 ) L 10/23/23 09: Carbon Dioxide 24 mmol/L (22-29) 10/23/23 09: Anion Gap 23.9 (5-19) H 10/23/23 09: BUN 10 mg/dL (6-20) 10/23/23 09: Creatinine 1.0 mg/dL (0.7-1. 2) 10/23/23 09:23 GFR Calculation 88.3 mL/min (90-1 30) L 10/23/23 09:23 Glucose 104 mg/dL (65-115 ) 10/23/23 09:23 Calculated Osmolal ity 281 mOsm/kg (285- 295) L 10/23/23 09:23 Calcium 9.4 mg/dL (8.5-10 .5) 10/23/23 09:23 Total Bilirubin 0.9 mg/dL (0.15-1 .2) 10/23/23 09:23 AST 114 U/L (0-40) H 10/23/23 09:23 ALT 170 U/L (0-41) H 10/23/23 09:23 Alkaline Phosphata se 73 U/L (40-130) 10/23/23 09:23 Total Protein 8.1 g/dL (6.6-8.7 ) 10/23/23 09:23 Albumin 4.9 g/dL (3.5-5.2 ) 10/23/23 09:23 Globulin 3.2 g/dL (1.3-4.6 ) 10/23/23 09:23 Salicylates < 0.3 mg/dL (3-10 ) L 10/23/23 09:23 Urine Opiates Scre en Negative ng/mL (N egative) 10/23/23 09:07 Acetaminophen < 5.0 ug/mL (10-3 0) L 10/23/23 09:23 Ur Barbiturates Sc reen Negative ng/mL (N egative) 10/23/23 09:07 Ur Phencyclidine S crn Negative ng/mL (N egative) 10/23/23 09:07 Ur Amphetamines Sc reen Negative ng/mL (N egative) 10/23/23 09:07 U Benzodiazepines Scrn Negative ng/mL (N egative) 10/23/23 09:07 Urine Cocaine Scre en Negative ng/mL (N egative) 10/23/23 09:07 U Marijuana (THC) Screen Positive ng/mL (N egative) H 10/23/23 09:07 Ethyl Alcohol 79 mg/dL (0-10) H 10/23/23 09:23 Vitals: Last Vital Signs Temp 98.4 F 10/26/23 06:00 Pulse 68 10/26/23 06:00 Resp 16 10/26/23 06:00 BP 110/73 10/26/23 06:00 Pulse Ox 95 10/26/23 06:00 O2 Del Method Room Air 10/24/23 20:31 Discharge Plan Discharge Patient Disposition: Home Condition: Stable Prescriptions: New Vitamin B-1 (mononitrate) 100 mg Tablet 100 mg PO DAILY 30 Days Qty: 30 1RF fluoxetine 20 mg Capsule 20 mg PO DAILY 30 Days Qty: 30 1RF Discharge Orders: Discharge Order (Routine); Ordered 10/26/23 Ordered By: Ayaan Monsivais Referrals: [facility] [Outside] - 10/30/23 7:30 am (Initial assessment with [facility]) Discharge Diet: Usual diet Discharge Activity: Resume usual activity Patient Instructions: Alcoholism, Alcohol Withdrawal, Fluoxetine (By mouth), Thiamine (By mouth), Vitamin B Complex (By mouth), Depression (DC), Help Prevent Suicide (DC), Opioid Safety Discharge Attestations NPU Time Spent in Discharge Care*: less than 30 min Specific Discharge Activities: Specific discharge activities: educating patient Coding Level of Care Code Acute Code for Chg Fwd Diagnoses Anxiety disorder, unspecified F41.9 Persistent depressive disorder, moderate F34.1 Alcohol withdrawal F10.939
[2023-10-26 14:33] VITALS: BP 110/73; PULSE 68; RESP 16; TEMP 36.9; O2SAT 95
== END 2023-10-26 14:51 | disposition home or self-care (01) | DRG 897 ==
LOC: ER 10:18 → NP 10:41
PROVIDERS: Admitting Provider Psychiatry & Neurology Psychiatry; Emergency Provider Physician Assistant; Visit Provider Psychiatry & Neurology Psychiatry
DX: F10.239 Alcohol dependence with withdrawal, unspecified (principal); F12.90 Cannabis use, unspecified, uncomplicated; F34.1 Dysthymic disorder; F41.9 Anxiety disorder, unspecified
CPT/HCPCS: 36415; 80053; 80306; 80307; 85025; 96361; 96374; 96375; 97165; 99285; J2060; J3411; J7030; Q0162